=== PATIENT | female | born 1970 | race Caucasian/White ===

== ENCOUNTER 2017-05-15 12:46 | Emergency (ER) | payer OTHER ==
[2017-05-15] MEDS: KETOROLAC 30 MG/ML VIAL (J1885) IM (15:10)
== END 2017-05-15 15:50 | disposition home or self-care (01) ==
LOC: M ED 12:46
DX: M79.604 Pain in right leg (principal); E11.9 Type 2 diabetes mellitus without complications; I10 Essential (primary) hypertension; M79.7 Fibromyalgia; Z79.899 Other long term (current) drug therapy; Z88.1 Allergy status to other antibiotic agents; Z98.890 Other specified postprocedural states; Z87.09 Personal history of other diseases of the respiratory system; Z90.49 Acquired absence of other specified parts of digestive tract
CPT/HCPCS: J1885